=== PATIENT | male | born 1980 | race Two or more races ===

== ENCOUNTER 2018-09-20 01:08 | Inpatient (IN) | payer SELFPAY ==
[~2018-09-20] VITALS: Ht 170.2 cm; Wt 71.3 kg
[2018-09-20 02:10] LABS: Urine Bacteria FEW /hpf (None Seen); Urine Blood Negative /uL (Negative); Urine WBC 1 /hpf (0 - 3)
[2018-09-20 02:12] LABS: Basophils # (auto) 0 uL; Basophils % (auto) 0.3 % (0.0-2.0); Eosinophils # (auto) 0.2 uL; Eosinophils % (auto) 1.6 % (0.0-7.0); Hematocrit 42.6 % (41.0-53.0); Hemoglobin 14.7 g/dL (13.5-17.5); Lymphocytes # (auto) 2.4 uL; Lymphocytes % (auto) 22.3 % (10.0-50.0); Mean Corpuscular Hemoglobin 31.3 pg (28.0-32.0); Mean Corpuscular Hgb Conc. 34.4 g/dL (32.0-36.0); Mean Corpuscular Volume 91.1 fL (80.0-100.0); Monocytes # (auto) 0.9 uL; Monocytes % (auto) 8.6 % (0.0-12.0); Neutrophils # (auto) 7.3 uL; Neutrophils % (auto) 67.2 % (37.0-80.0); Nucleated Red Blood Cells % 0.1 %; Platelet Count (auto) 427 10^3/uL (140-450); Red Blood Cells 4.67 10^6/uL (4.5-5.90); Red Cell Distribution Width 14.1 % (11.8-14.3); White Blood Cell 10.9 10^3/uL (4.4-10.8)
[2018-09-20 02:22] LABS: Albumin 3.8 g/dL (3.4-5.0); Calcium 8.8 mg/dL (8.5-10.1); Potassium 3.3 mmol/L (3.5-5.1)
[2018-09-20 02:31] LABS: BUN/Creatinine Ratio 11.4; Bilirubin, Total 5.2 mg/dL (0.2-1.0); Total Protein 8.4 g/dL (6.4-8.2)
[2018-09-20] MEDS ORDERED: SODIUM CHLORIDE 0.9% 1,000 ML IV ONE ×2 (07:58)
[2018-09-20] MEDS ORDERED: MORPHINE SULFATE 4 MG/ML SYR/VIAL IV ONE (08:00)
[2018-09-20] MEDS ORDERED: PIPERACILLIN-TAZOB 3.375GM 100 ML IV ONE (08:00)
[2018-09-20] MEDS ORDERED: ONDANSETRON HCL 4 MG/2 ML VIAL IV ONE (08:00)
[2018-09-20] MEDS ORDERED: NITROGLYCERIN 0.4 MG SL TAB SL PRN (08:45)
[2018-09-20] MEDS ORDERED: SODIUM CHLORIDE 0.9% 1,000 ML IV SCH (08:45)
[2018-09-20] MEDS ORDERED: MORPHINE SULF INJ 2 MG/ML SYRINGE 1ML IV PRN (08:45)
[2018-09-20] MEDS ORDERED: ONDANSETRON HCL 4 MG/2 ML VIAL IV PRN (08:45)
[2018-09-20] MEDS ORDERED: POTASSIUM CHLORIDE 40 MEQ, LIDOCAINE 1% (LOCAL ANESTH.) 4 ML in SODIUM CHL 0.9% 100 ML IV ONE (08:45)
[2018-09-20] MEDS ORDERED: HYDROmorphone HCL 2 MG/ML VL IV PRN (08:45)
[2018-09-20 09:56] LABS: Cholesterol 191 mg/dL (< 200); HDL Cholesterol 50 mg/dL (40-59); LDL Cholesterol 110 mg/dL (< 100); Triglycerides 118 mg/dL (< 150)
[2018-09-20] MEDS: FAMOTIDINE (10MG/ML) 2ML VL IV SCH ×2 (11:06→21:44)
--- NOTE | 2018-09-20 11:16 | NUR ---
REPORT RECEIVED FROM RALF ROA. WILL AWAIT PATIENT.
--- NOTE | 2018-09-20 11:25 | NUR ---
RECEIVED PATIENT TO THE FLOOR ALERT AND ORIENTED X4 NO SIGNS AND SYMPTOMS OR PAIN NOTED. PATIENT STATES HIS PAIN LEVEL IS AT A 0 AT THIS TIME. POTASSIUM HUNG PER ORDERS AT 31ML/HR AND NS RUNNING AT 125 ML/HR ORDERED. BED LOCKED IN LOWEST POSITION WITH TWO SIDE RAILS UP AND CALL LIGHT IN REACH. EDUCATED PATIENT AND ON THE PLAN OF CARE AND TO CALL IF ANYTHING IS NEEDED, I WILL CONTINUE TO MONITOR AND ROUND Q HOURLY.
[2018-09-20 11:33] VITALS: BP 123/73
[2018-09-20] MEDS ORDERED: CEFD300C2 PO (11:41)
[2018-09-20 12:08] VITALS: BP 123/73
[2018-09-20] MEDS: SODIUM CHLORIDE 0.9% 1,000 ML IV SCH ×2 (14:47→21:45)
[2018-09-20 16:33] VITALS: BP 113/68
--- NOTE | 2018-09-20 19:30 | NUR ---
OPENING NOTE REPORT RECEIVED FROM DAY SHIFT RN. PATIENT IS A/OX4 RESTING IN BED, NO S/S OF DISTRESS NOTED.PATIENT C/O OF PAIN TO LEFT AC IV SITE, REQUESTING TO REMOVE IV. WILL REMOVE IV AT THIS TIME. PATIENT HAS A PATENT RIGHT AC IV 20G RUNNING NS AT 125ML/HR. PATIENT EDUCATED TO REMAIN NPO STATUS, AWAITING GI CONSULT. POC DISCUSSED AND ALL QUESTIONS ANSWERED. WILL MONITOR Q1H PRN THROUGHOUT SHIFT, CALL LIGHT WITHIN REACH.
--- NOTE | 2018-09-20 19:35 | NUR ---
IV removal TO LEFT AC IV DC'd with clean sterile technique, catheter fully intact. Pressure dressing applied to site. Patient tolerated well.
[2018-09-20 23:05] VITALS: BP 104/56
[2018-09-21 05:21] VITALS: BP 107/53
[2018-09-21] MEDS: SODIUM CHLORIDE 0.9% 1,000 ML IV SCH ×3 (06:10→22:15)
[2018-09-21 07:04] LABS: Basophils # (auto) 0.1 uL; Basophils % (auto) 1.5 % (0.0-2.0); Eosinophils # (auto) 0.2 uL; Eosinophils % (auto) 3.1 % (0.0-7.0); Hematocrit 39.7 % (41.0-53.0); Hemoglobin 13.6 g/dL (13.5-17.5); Lymphocytes # (auto) 1.4 uL; Lymphocytes % (auto) 24.4 % (10.0-50.0); Mean Corpuscular Hemoglobin 31.7 pg (28.0-32.0); Mean Corpuscular Hgb Conc. 34.2 g/dL (32.0-36.0); Mean Corpuscular Volume 92.8 fL (80.0-100.0); Monocytes # (auto) 0.5 uL; Monocytes % (auto) 8.7 % (0.0-12.0); Neutrophils # (auto) 3.6 uL; Neutrophils % (auto) 62.3 % (37.0-80.0); Platelet Count (auto) 359 10^3/uL (140-450); Red Blood Cells 4.28 10^6/uL (4.5-5.90); Red Cell Distribution Width 13.9 % (11.8-14.3); White Blood Cell 5.8 10^3/uL (4.4-10.8)
--- NOTE | 2018-09-21 07:21 | NUR ---
CLOSING NOTE REPORT ENDORSED TO AM NURSE JOAN PATIENT IS RESTING IN BED. NO S/S OF DISTRESS AT THIS TIME CALL LIGHT WITHIN REACH
--- NOTE | 2018-09-21 07:25 | NUR ---
Opening Shift Note Assumed care of patient, awake and alert. No S/S of distress/SOB or pain. Instructed on POC and to call for assist PRN, will continue to monitor for changes Q1hr and PRN.
[2018-09-21 07:47] LABS: Albumin 3.1 g/dL (3.4-5.0); BUN/Creatinine Ratio 13.2; Bilirubin, Total 1.6 mg/dL (0.2-1.0); Calcium 8.3 mg/dL (8.5-10.1); Total Protein 7.1 g/dL (6.4-8.2)
[2018-09-21 08:00] VITALS: BP 100/60
[2018-09-21 09:18] VITALS: BP 100/60
[2018-09-21] MEDS: FAMOTIDINE (10MG/ML) 2ML VL IV SCH ×2 (10:04→22:15)
[2018-09-21 11:33] VITALS: BP 119/60
[2018-09-21 14:13] LABS: INR 1.08 (0.9-1.15); Partial Thromboplastin Time 28.7 sec (23.64-32.05)
[2018-09-21 16:33] VITALS: BP 104/64
--- NOTE | 2018-09-21 19:00 | NUR ---
OPEN SHIFT NOTE PATIENT IS ALERT AND ORIENTED X4 ON ROOM AIR, RIGHT AC 20 GAUGE IS INTACT AND PATENT WITH NORMAL SALINE RUNNING AT 125MLS/HR. POC DISCUSSED AND QUESTIONS ANSWERED. NO COMPLAINTS OF PAIN AT THIS TIME. NO SIGNS OR SYMPTOMS OF DISTRESS NOTED. BED IS LOCKED IN LOWEST POSITION WITH SIDE RAILS UP X2 FOR SAFETY. CALL LIGHT IS WITHIN REACH AND PATIENT ENCOURAGED TO CALL IF NEEDS ANYTHING. WILL CONTINUE TO ROUND Q1HR AND PRN.
[2018-09-21 22:00] VITALS: BP 128/71
[2018-09-22 05:00] VITALS: BP 110/73
--- NOTE | 2018-09-22 06:00 | NUR ---
ALL LINENS HAVE BEEN CHANGED AND PATIENT HAS BEEN WIPED DOWN WITH CHG WIPES.
[2018-09-22] MEDS: SODIUM CHLORIDE 0.9% 1,000 ML IV SCH ×3 (06:10→22:40)
[2018-09-22 07:00] LABS: Basophils # (auto) 0.1 uL; Basophils % (auto) 1.2 % (0.0-2.0); Eosinophils # (auto) 0.1 uL; Eosinophils % (auto) 2.5 % (0.0-7.0); Hematocrit 41.5 % (41.0-53.0); Hemoglobin 14.1 g/dL (13.5-17.5); Lymphocytes # (auto) 1.8 uL; Lymphocytes % (auto) 34.3 % (10.0-50.0); Mean Corpuscular Hemoglobin 31.4 pg (28.0-32.0); Mean Corpuscular Hgb Conc. 33.9 g/dL (32.0-36.0); Mean Corpuscular Volume 92.6 fL (80.0-100.0); Monocytes # (auto) 0.4 uL; Monocytes % (auto) 8.1 % (0.0-12.0); Neutrophils # (auto) 2.8 uL; Neutrophils % (auto) 53.9 % (37.0-80.0); Nucleated Red Blood Cells % 0.1 %; Platelet Count (auto) 394 10^3/uL (140-450); Red Blood Cells 4.49 10^6/uL (4.5-5.90); Red Cell Distribution Width 13.5 % (11.8-14.3); White Blood Cell 5.3 10^3/uL (4.4-10.8)
--- NOTE | 2018-09-22 07:01 | NUR ---
PATIENT TAKEN DOWN TO PRE-OP FOR CHOLECYSTECTOMY
[2018-09-22] MEDS ORDERED: ceFAZolin 1GM/50ML 50 ML IV ONE (07:06)
--- NOTE | 2018-09-22 07:20 | NUR ---
Opening Shift Note Assumed care of patient, patient currently off floor for surgery.
[2018-09-22 07:34] LABS: Potassium 3.6 mmol/L (3.5-5.1)
[2018-09-22] MEDS ORDERED: ROCURONIUM 10MG/ML 10ML VIAL IV ONE (07:34)
[2018-09-22] MEDS ORDERED: fentaNYL CITRATE 100 MCG/2 ML VL ONE (07:34)
[2018-09-22] MEDS ORDERED: MIDAZOLAM HCL 1MG/1ML-2 ML VIAL ONE (07:34)
[2018-09-22] MEDS ORDERED: PROPOFOL 10 MG/ML 20 ML IV ONE (07:38)
[2018-09-22 07:43] LABS: Albumin 3.4 g/dL (3.4-5.0); BUN/Creatinine Ratio 9.8; Bilirubin, Total 1.5 mg/dL (0.2-1.0); Calcium 8.7 mg/dL (8.5-10.1); Total Protein 7.6 g/dL (6.4-8.2)
[2018-09-22] MEDS ORDERED: ePHEDrine SULFATE 50 MG/ML AMP IV PRN (08:30)
[2018-09-22] MEDS ORDERED: ONDANSETRON HCL 4 MG/2 ML VIAL IV ONE (08:30)
[2018-09-22] MEDS ORDERED: HYDROmorphone HCL 2 MG/ML VL IV PRN (08:30)
[2018-09-22] MEDS ORDERED: hydrALAZINE HCL 20 MG/ML VL IV PRN (08:30)
[2018-09-22] MEDS: HYDROmorphone HCL 2 MG/ML VL IV PRN ×3 (08:53→09:13)
[2018-09-22] MEDS: FAMOTIDINE (10MG/ML) 2ML VL IV SCH ×2 (10:21→21:18)
[2018-09-22 11:30] VITALS: BP 124/83
[2018-09-22 13:00] VITALS: BP 117/62
--- NOTE | 2018-09-22 15:07 | NUR ---
Nutrition Assessment Notes please see attached link for complete assessment Est. Needs BW [id number] kcal (25-30 kcal/kgBW), 71-85 gms pro (1.0-1.2 gms/kgBW). Will continue to monitor pertinent labs and reassess nutrient need prn Addendum: 09/22/18 at [address] Amended: Links added.
[2018-09-22 17:17] VITALS: BP 119/63
--- NOTE | 2018-09-22 19:35 | NUR ---
Opening Shift Note Assumed care of patient, awake and alert. No S/S of distress/SOB or pain. Patient is s/p lap choly with 3 incisions, 2 mid abdomen and 1 on right abdomen, clean, dry and intact. Bed locked in lowest position, side rails upx2, call light within reach. Instructed on POC and to call for assist PRN, will continue to monitor for changes Q1hr and PRN.
[2018-09-22 22:00] VITALS: BP 128/61
[2018-09-23 05:29] VITALS: BP 126/82
[2018-09-23] MEDS: SODIUM CHLORIDE 0.9% 1,000 ML IV SCH (05:59)
[2018-09-23 06:33] LABS: Basophils # (auto) 0 uL; Basophils % (auto) 0.7 % (0.0-2.0); Eosinophils # (auto) 0.1 uL; Eosinophils % (auto) 1.4 % (0.0-7.0); Hematocrit 38.9 % (41.0-53.0); Hemoglobin 13.2 g/dL (13.5-17.5); Lymphocytes # (auto) 2.3 uL; Lymphocytes % (auto) 32.2 % (10.0-50.0); Mean Corpuscular Hemoglobin 31.5 pg (28.0-32.0); Mean Corpuscular Volume 92.7 fL (80.0-100.0); Monocytes # (auto) 0.7 uL; Monocytes % (auto) 9.4 % (0.0-12.0); Neutrophils % (auto) 56.3 % (37.0-80.0); Nucleated Red Blood Cells % 0.1 %; Platelet Count (auto) 388 10^3/uL (140-450); Red Cell Distribution Width 13.2 % (11.8-14.3); White Blood Cell 7.1 10^3/uL (4.4-10.8)
[2018-09-23 06:58] LABS: Bilirubin, Total 1.2 mg/dL (0.2-1.0)
[2018-09-23 08:47] VITALS: BP 126/72
--- NOTE | 2018-09-23 09:30 | NUR ---
PT SEEN BY DR. COBIAN PER PT HE HAD BM, DR. COBIAN SAID SHE WILL ADVANCE PT'S DIET AND SHE WILL CALL DR. STEPHEN IF PT IS OKAY TO GO HOME.
[2018-09-23] MEDS ORDERED: FAM20T PO (09:40)
[2018-09-23] MEDS ORDERED: traMADol HCL 50 MG TAB PO PRN (09:45)
[2018-09-23] MEDS ORDERED: FAMOTIDINE 20 MG TAB PO SCH (10:00)
--- NOTE | 2018-09-23 11:20 | NUR ---
SPOKE WITH DR. COBIAN, SHE SAID DR. STEPHEN CLEARED THE PT FOR DISCHARGE.
[2018-09-23 12:08] VITALS: BP 137/81
[2018-09-23 12:19] VITALS: BP 137/81
--- NOTE | 2018-09-23 14:25 | NUR ---
Discharge instructions given as ordered. Encourage to follow up with DR. STEPHEN ON OCTOBER 05 AT 10:30AM, FOLLOW UP WITH [facility], TEL# AND ADDRESS PROVIDED TO THE PT. All questions and concerns addressed. Patient verbalized understanding. Medication reconciliation form completed and copy given to patient. IV removed with catheter intact, pressure dressing applied. Patient taken to vehicle via wheelchair with all personal belongings, accompanied by staff and family member. No distress noted at time of departure.
== END 2018-09-23 14:25 | disposition home or self-care (01) | DRG 417 ==
LOC: ER 01:11 → OVERFLOW 01:12 → EAST 11:19
PROVIDERS: ADMIT Nurse Practitioner Acute Care; ATTEND Internal Medicine
PROC: 0FT44ZZ Resection of Gallbladder, Percutaneous Endoscopic Approach (ICD-10-PCS; principal; 2018-09-22 07:27)
DX: K80.10 Calculus of gallbladder with chronic cholecystitis without obstruction (principal); K85.10 Biliary acute pancreatitis without necrosis or infection; R65.10 Systemic inflammatory response syndrome (SIRS) of non-infectious origin without acute organ dysfunction; E87.6 Hypokalemia
CPT/HCPCS: 36415; 71045; 74176; 74181; 76705; 78226; 80053; 80061; 81001; 82150; 82247; 83605; 83690; 85025; 85610; 85730; 86850; 86900; 86901; 87040; 96374; G0378; J0690; J2001; J2250; J2405; J2543; J2704; J3490